=== PATIENT | male | born 1995 | race Caucasian/White ===

== ENCOUNTER → 2021-06-18 | Outpatient (CLI) | payer BC ==
--- NOTE | 2021-06-18 10:38 | CT ---
EXAMINATION TYPE: CT CervThorLumbar spine wo con DATE OF EXAM: 06/18/2021 COMPARISON: Outside cervical spine x-rays June 12, 2021. Outside thoracic spine x-ray May 26, 2021 HISTORY: Follow up fractures per patient. No complaints of pain CT DLP: 586.6 mGycm Automated exposure control for dose reduction was used. FINDINGS: There is moderate height loss with sclerosis involving the T7 vertebra. There is mild height loss wit h sclerosis involving the T8 vertebra. There is some linear lucency anteriorly at these levels redemo nstrated. No posterior extension or retropulsion identified. There is scoliotic curvature centered mi d thoracic spine on coronal images. There is a sacralized L5 vertebra. No additional acute fracture o r dislocation in the cervical or lumbar spine. Spinal canal grossly preserved. Visualized portion of the neck, thorax, and abdomen are unremarkable on noncontrast CT. Review of ax ial images shows no additional suspicious abnormality. IMPRESSION: Healing fractures of the T7 and T8 vertebra as detailed above.
== END | disposition home or self-care (01) ==
LOC: RADCTMAIN 07:45
PROVIDERS: ATTEND Orthopaedic Surgery
DX: M54.6 Pain in thoracic spine (principal)
CPT/HCPCS: 72125; 72128; 72131